=== PATIENT | female | born 1955 | race Caucasian/White ===

== ENCOUNTER 2017-05-07 16:07 | Emergency (ER) | payer MEDICAID ==
[~2017-05-07] VITALS: Ht 157.5 cm; Wt 59.0 kg
[2017-05-07 17:13] LABS: BASOPHILS % (AUTO) 0.7 % (0-1); EOSINOPHILS # (AUTO) 0.1 X10'3 (0-0.9); HEMATOCRIT 39.2 % (35.0-45.0); HEMOGLOBIN 13.2 g/dl (12.0-16.0); LYMPHOCYTES # (AUTO) 0.7 X10'3 (1.1-4.8); LYMPHOCYTES % (AUTO) 11.3 % (21-51); MEAN CORPUSCULAR HGB CONC 33.7 % (33.0-36.5); MEAN CORPUSCULAR VOLUME 94.9 FL (78-98); MONOCYTES # (AUTO) 0.6 X10'3 (0-0.9); MONOCYTES % (AUTO) 9.2 % (2-12); NEUTROPHILS % (AUTO) 77.8 % (42-75); PLATELET COUNT 267 X10'3 (140-440); RED BLOOD COUNT 4.13 X10'6 (4.20-5.60); WHITE BLOOD COUNT 6.4 X10'3 (4.5-11.0)
[2017-05-07 17:24] LABS: PARTIAL THROMBOPLASTIN TIME 24 SECONDS (22-32)
[2017-05-07 17:31] LABS: ALANINE AMINOTRANSFERASE 27 U/L (12-78); ALKALINE PHOSPHATASE 70 IU/L (46-116); ANION GAP 10 (8-16); ASPARTATE AMINO TRANSFERASE 22 U/L (10-37); BILIRUBIN,TOTAL 0.3 MG/DL (0.1-1.0); BLOOD UREA NITROGEN 15 MG/DL (7-18); CALCIUM 9.1 MG/DL (8.5-10.1); CHLORIDE 102 MMOL/L (99-107); GLUCOSE 110 MG/DL (70-104); POTASSIUM 3.7 MMOL/L (3.5-5.1); SODIUM 139 MMOL/L (135-145); TOTAL CARBON DIOXIDE 26.8 MMOL/L (24-32); eGFR > 90 ML/MIN
[2017-05-07] MEDS ORDERED: normal saline 1000ML IV soln IVB ONE (18:35)
[2017-05-07] MEDS ORDERED: ondansetron/PF 4mg/2ml inj IV ONE (18:35)
[2017-05-07] MEDS ORDERED: meclizine 12.5mg tablet PO ONE (18:35)
[2017-05-07] MEDS ORDERED: ONDA4TAB9 SL (19:44)
[2017-05-07] MEDS ORDERED: MECL-111 PO (19:44)
[2017-05-07 20:12] VITALS: BP 184/101
== END 2017-05-07 21:10 | disposition home or self-care (01) ==
LOC: ER 16:07
DX: R42 Dizziness and giddiness (principal); R55 Syncope and collapse; I10 Essential (primary) hypertension; Z88.8 Allergy status to other drugs, medicaments and biological substances
CPT/HCPCS: 36415; 71045; 80053; 84484; 85025; 85610; 85730; 93005; 96361; 96374; 99285; J2405; J7030; J8597

== ENCOUNTER 2017-05-15 12:44 | Emergency (ER) | payer MEDICAID ==
[~2017-05-15] VITALS: Ht 167.6 cm; Wt 61.2 kg
[~2017-05-15 12:44] MED LIST: MECL-111 PO
[2017-05-15 14:31] LABS: BASOPHILS % (AUTO) 0.3 % (0-1); EOSINOPHILS # (AUTO) 0.1 X10'3 (0-0.9); EOSINOPHILS % (AUTO) 1.2 % (0-6); HEMATOCRIT 36.9 % (35.0-45.0); HEMOGLOBIN 12.4 g/dl (12.0-16.0); LYMPHOCYTES # (AUTO) 0.7 X10'3 (1.1-4.8); LYMPHOCYTES % (AUTO) 14.5 % (21-51); MEAN CORPUSCULAR HEMOGLOBIN 31.9 PG (27.0-31.0); MEAN CORPUSCULAR HGB CONC 33.6 % (33.0-36.5); MEAN PLATELET VOLUME 7.4 FL (7.4-10.4); MONOCYTES # (AUTO) 0.4 X10'3 (0-0.9); MONOCYTES % (AUTO) 8.5 % (2-12); NEUTROPHILS # (AUTO) 3.5 X10'3 (1.8-7.7); NEUTROPHILS % (AUTO) 75.5 % (42-75); PLATELET COUNT 223 X10'3 (140-440); RED BLOOD COUNT 3.88 X10'6 (4.20-5.60); RED CELL DISTRIBUTION WIDTH 14.1 % (11.5-14.5); WHITE BLOOD COUNT 4.7 X10'3 (4.5-11.0)
[2017-05-15 14:58] LABS: ALANINE AMINOTRANSFERASE 19 U/L (12-78); ALBUMIN 3.6 G/DL (3.4-5.0); ALKALINE PHOSPHATASE 68 IU/L (46-116); ANION GAP 6 (8-16); ASPARTATE AMINO TRANSFERASE 24 U/L (10-37); BILIRUBIN,TOTAL 0.2 MG/DL (0.1-1.0); BLOOD UREA NITROGEN 17 MG/DL (7-18); BUN/CREATININE RATIO 28.3 (6.6-38.0); CALCIUM 8.7 MG/DL (8.5-10.1); CHLORIDE 107 MMOL/L (99-107); GLUCOSE 159 MG/DL (70-104); POTASSIUM 3.7 MMOL/L (3.5-5.1); SODIUM 142 MMOL/L (135-145); TOTAL CARBON DIOXIDE 28.7 MMOL/L (24-32); TOTAL PROTEIN 7.3 G/DL (6.4-8.2); TROPONIN I < 0.04 NG/ML (0.0-0.05); eGFR > 90 ML/MIN
[2017-05-15 15:38] VITALS: BP 138/85
== END 2017-05-15 15:48 | disposition home or self-care (01) ==
LOC: ER 12:44
DX: I10 Essential (primary) hypertension (principal); R42 Dizziness and giddiness; R73.9 Hyperglycemia, unspecified; Z88.8 Allergy status to other drugs, medicaments and biological substances; Z60.2 Problems related to living alone; Z79.899 Other long term (current) drug therapy
CPT/HCPCS: 36415; 70450; 80053; 84443; 84484; 85025; 93005; 99285

== ENCOUNTER 2020-11-28 09:28 | Emergency (ER) | payer MEDICARE, MEDICAID ==
[~2020-11-28] VITALS: Ht 167.6 cm; Wt 63.6 kg
[~2020-11-28 09:28] MED LIST changes: +FOLI0.8T3 PO; +HYDR25TA4 PO; +LOPE-144 PO; -MECL-111 PO; +METH2.5T PO; +PANT40TA54 PO; +PRE5T PO
[2020-11-28 11:03] LABS: BASOPHILS % (AUTO) 0.6 % (0-1); EOSINOPHILS # (AUTO) 0.1 X10'3 (0-0.9); EOSINOPHILS % (AUTO) 1.7 % (0-6); HEMATOCRIT 27.6 % (35.0-45.0); HEMOGLOBIN 8.8 g/dl (12.0-16.0); LYMPHOCYTES # (AUTO) 0.7 X10'3 (1.1-4.8); LYMPHOCYTES % (AUTO) 10.6 % (21-51); MEAN CORPUSCULAR HEMOGLOBIN 28.9 PG (27.0-31.0); MEAN CORPUSCULAR VOLUME 90.4 FL (78-98); MEAN PLATELET VOLUME 6.5 FL (7.4-10.4); MONOCYTES # (AUTO) 0.5 X10'3 (0-0.9); NEUTROPHILS # (AUTO) 5.4 X10'3 (1.8-7.7); NEUTROPHILS % (AUTO) 79.1 % (42-75); PLATELET COUNT 470 X10'3 (140-440); RED BLOOD COUNT 3.05 X10'6 (4.20-5.60); RED CELL DISTRIBUTION WIDTH 16.9 % (11.5-14.5); WHITE BLOOD COUNT 6.8 X10'3 (4.5-11.0)
[2020-11-28 11:27] LABS: ALANINE AMINOTRANSFERASE 26 U/L (12-78); ALBUMIN 3.8 G/DL (3.4-5.0); ALKALINE PHOSPHATASE 76 IU/L (46-116); ANION GAP 9 (8-16); ASPARTATE AMINO TRANSFERASE 17 U/L (10-37); BILIRUBIN,TOTAL 0.2 MG/DL (0.1-1.0); BLOOD UREA NITROGEN 28 MG/DL (7-18); BUN/CREATININE RATIO 27.2 (6.6-38.0); CALCIUM 8.5 MG/DL (8.5-10.1); CHLORIDE 106 MMOL/L (99-107); CREATININE 1.03 MG/DL (0.40-0.90); GLUCOSE 131 MG/DL (70-104); POTASSIUM 3.5 MMOL/L (3.5-5.1); SODIUM 143 MMOL/L (135-145); TOTAL CARBON DIOXIDE 28.5 MMOL/L (24-32); TOTAL PROTEIN 7.5 G/DL (6.4-8.2); eGFR 53 ML/MIN
[2020-11-28 12:13] LABS: D-DIMER 2.34 MG/L FEU (0-0.50)
[2020-11-28] MEDS ORDERED: normal saline 1000ml 1,000 ML IV ONE (12:25)
[2020-11-28] MEDS ORDERED: iohexol 350MG/ML 100ml bottle IV ONE (13:17)
[2020-11-28 15:35] VITALS: BP 158/89
== END 2020-11-28 15:34 | disposition home or self-care (01) ==
LOC: ER 09:29
DX: R00.0 Tachycardia, unspecified (principal); R53.1 Weakness; I10 Essential (primary) hypertension; Z72.89 Other problems related to lifestyle; Z86.718 Personal history of other venous thrombosis and embolism; Z88.8 Allergy status to other drugs, medicaments and biological substances; Z79.899 Other long term (current) drug therapy
CPT/HCPCS: 36415; 71045; 71275; 80053; 83880; 84443; 84484; 85025; 85379; 93005; 96360; 99285; J7030; Q9967

== ENCOUNTER 2021-08-16 06:07 | Emergency (ER) | payer MEDICARE, MEDICAID ==
[~2021-08-16] VITALS: Ht 167.6 cm; Wt 61.8 kg
[2021-08-16 08:29] LABS: BASOPHILS % (AUTO) 0.2 % (0-1); EOSINOPHILS % (AUTO) 0.1 % (0-6); HEMATOCRIT 37.3 % (35.0-45.0); HEMOGLOBIN 12.4 g/dl (12.0-16.0); LYMPHOCYTES # (AUTO) 0.3 X10'3 (1.1-4.8); LYMPHOCYTES % (AUTO) 5.4 % (21-51); MEAN CORPUSCULAR HEMOGLOBIN 32.9 PG (27.0-31.0); MEAN CORPUSCULAR HGB CONC 33.2 g/dL (33.0-36.5); MEAN PLATELET VOLUME 6.8 FL (7.4-10.4); MONOCYTES # (AUTO) 0.4 X10'3 (0-0.9); MONOCYTES % (AUTO) 6.9 % (2-12); NEUTROPHILS # (AUTO) 5.3 X10'3 (1.8-7.7); NEUTROPHILS % (AUTO) 87.4 % (42-75); PLATELET COUNT 241 X10'3 (140-440); RED BLOOD COUNT 3.77 X10'6 (4.20-5.60); RED CELL DISTRIBUTION WIDTH 15.1 % (11.5-14.5)
[2021-08-16 08:49] LABS: CLARITY,URINE SLIGHTLY CLOUDY (Clear); COLOR,URINE YELLOW (Yellow); GLUCOSE, URINE NEGATIVE (Neg); KETONES,URINE 40 mg/dl (Neg); LEUKOCYTE ESTERASE ,URINE NEGATIVE (Neg); NITRITES, URINE NEGATIVE (Neg); OCCULT BLOOD,URINE TRACE-INTACT (Neg); PROTEIN,URINE 30 mg/dl (Neg); UROBILINOGEN,URINE 0.2 E.U/dL (0.2-1.0)
[2021-08-16 08:50] LABS: UA COLLECTION TYPE CLN CATCH MIDSTREAM
[2021-08-16 08:55] LABS: BACTERIA,URINE FEW /HPF (Neg); FINE GRANULAR CAST 0-3 /LPF (NEGATIVE); HYALINE CASTS 0-3 /LPF (NEGATIVE); MUCUS STRANDS MODERATE /LPF (Neg); RBC,URINE 0-2 /HPF (0-2); SQUAMOUS EPITHELIAL CELL,UR FEW /LPF (FEW); WBC,URINE 0-4 /HPF (0-4)
[2021-08-16 08:55] LABS: ALANINE AMINOTRANSFERASE 42 U/L (12-78); ALBUMIN 3.7 G/DL (3.4-5.0); ALBUMIN/GLOBULIN RATIO 0.9 (1.1-1.5); ALKALINE PHOSPHATASE 69 IU/L (46-116); ANION GAP 8 (8-16); ASPARTATE AMINO TRANSFERASE 36 U/L (10-37); BILIRUBIN,TOTAL 0.5 MG/DL (0.1-1.0); BLOOD UREA NITROGEN 16 MG/DL (7-18); BUN/CREATININE RATIO 17.2 (6.6-38.0); CALCIUM 9.1 MG/DL (8.5-10.1); CHLORIDE 101 MMOL/L (99-107); CREATININE 0.93 MG/DL (0.40-0.90); GLUCOSE 99 MG/DL (70-104); MAGNESIUM 2.1 MG/DL (1.5-2.4); POTASSIUM 3.8 MMOL/L (3.5-5.1); SODIUM 136 MMOL/L (135-145); TOTAL CARBON DIOXIDE 27.2 MMOL/L (24-32); TOTAL PROTEIN 7.8 G/DL (6.4-8.2); eGFR 60 ML/MIN
[2021-08-16 09:22] VITALS: BP 133/78
== END 2021-08-16 10:12 | disposition home or self-care (01) ==
LOC: ER 06:08
DX: B34.9 Viral infection, unspecified (principal); Z20.822 Contact with and (suspected) exposure to COVID-19; R53.1 Weakness; R51.9 Headache, unspecified; R11.0 Nausea; I10 Essential (primary) hypertension; M19.90 Unspecified osteoarthritis, unspecified site; F41.9 Anxiety disorder, unspecified; Z86.718 Personal history of other venous thrombosis and embolism; Z72.89 Other problems related to lifestyle; Z60.2 Problems related to living alone; Z88.8 Allergy status to other drugs, medicaments and biological substances; Z79.899 Other long term (current) drug therapy
CPT/HCPCS: 36415; 71045; 80053; 81001; 83735; 84145; 84484; 85025; 87502; 87503; 87635; 99284; C9803

== ENCOUNTER 2021-08-25 06:21 | Inpatient (IN) | payer MEDICARE, MEDICAID ==
[~2021-08-25] VITALS: Ht 167.6 cm; Wt 54.0 kg
[2021-08-25 07:32] LABS: BASOPHILS % (AUTO) 0.4 % (0-1); EOSINOPHILS % (AUTO) 0.4 % (0-6); HEMATOCRIT 38.1 % (35.0-45.0); HEMOGLOBIN 12.9 g/dl (12.0-16.0); LYMPHOCYTES # (AUTO) 0.5 X10'3 (1.1-4.8); LYMPHOCYTES % (AUTO) 4.7 % (21-51); MEAN CORPUSCULAR HEMOGLOBIN 32.9 PG (27.0-31.0); MEAN CORPUSCULAR HGB CONC 33.8 g/dL (33.0-36.5); MEAN CORPUSCULAR VOLUME 97.3 FL (78-98); MEAN PLATELET VOLUME 7.7 FL (7.4-10.4); MONOCYTES # (AUTO) 1.3 X10'3 (0-0.9); NEUTROPHILS % (AUTO) 82.5 % (42-75); PLATELET COUNT 411 X10'3 (140-440); RED BLOOD COUNT 3.92 X10'6 (4.20-5.60); RED CELL DISTRIBUTION WIDTH 15.1 % (11.5-14.5); WHITE BLOOD COUNT 10.9 X10'3 (4.5-11.0)
[2021-08-25 07:37] LABS: ALANINE AMINOTRANSFERASE 147 U/L (12-78); ALBUMIN 2.6 G/DL (3.4-5.0); ALBUMIN/GLOBULIN RATIO 0.5 (1.1-1.5); ALKALINE PHOSPHATASE 221 IU/L (46-116); ANION GAP 10 (8-16); ASPARTATE AMINO TRANSFERASE 99 U/L (10-37); BILIRUBIN,TOTAL 0.8 MG/DL (0.1-1.0); BLOOD UREA NITROGEN 31 MG/DL (7-18); BUN/CREATININE RATIO 25.6 (6.6-38.0); CHLORIDE 96 MMOL/L (99-107); CREATININE 1.21 MG/DL (0.40-0.90); GLUCOSE 153 MG/DL (70-104); LIPASE 207 U/L (73-393); SODIUM 136 MMOL/L (135-145); TOTAL CARBON DIOXIDE 30.5 MMOL/L (24-32); TOTAL PROTEIN 8.1 G/DL (6.4-8.2); eGFR 44 ML/MIN
[2021-08-25 07:53] LABS: CALCIUM 8.8 MG/DL (8.5-10.1)
[2021-08-25 07:56] LABS: POTASSIUM 2.7 MMOL/L (3.5-5.1)
[2021-08-25] MEDS ORDERED: normal saline 1000ml 1,000 ML IV ONE (09:30)
[2021-08-25] MEDS ORDERED: potassium CL 10mEq/100ml bag 100 ML IV ONE (09:30)
[2021-08-25 09:54] LABS: APTT 25 SECONDS (22-32); MAGNESIUM 2.3 MG/DL (1.5-2.4); PHOSPHORUS 2.8 MG/DL (2.3-4.5)
[2021-08-25 09:58] LABS: OCCULT BLOOD STOOL POSITIVE (Neg)
[2021-08-25] MEDS: potassium Cl 20 mEq SR tablet PO ONE ×2 (10:03→10:08)
[2021-08-25] MEDS: magnesium 2GM in 50ml NS 50 ML IV SCH ×2 (10:03→11:31)
[2021-08-25] MEDS ORDERED: POTASSIUM BICARB 20meq eff tab 20 MEQ TABLET.EFF PO ONE (10:10)
[2021-08-25] MEDS ORDERED: POTA10CA44 PO (10:23)
[2021-08-25] MEDS ORDERED: FOLI1TAB27 PO (10:23)
--- NOTE | 2021-08-25 10:24 | NUR ---
COMPLETED MED REC WITH PT AND PHARMACY EXTERNAL LIST.
[2021-08-25] MEDS ORDERED: ondansetron/PF 4mg/2ml inj IV PRN (11:50)
[2021-08-25] MEDS ORDERED: acetaminophen 325mg tablet PO PRN ×2 (11:50)
[2021-08-25] MEDS ORDERED: magnesium Cl slow-release 64mg tablet PO PRN (11:50)
[2021-08-25] MEDS ORDERED: mag hydrox/Alum hydrox/simeth 30ml oral suspension PO PRN (11:50)
[2021-08-25] MEDS ORDERED: magnesium 2GM in 50ml NS 50 ML IV PRN (11:50)
[2021-08-25] MEDS ORDERED: loperamide 2mg capsule PO PRN (11:50)
[2021-08-25] MEDS ORDERED: magnesium hydroxide 30ml (MOM) UD suspension PO PRN (11:50)
[2021-08-25] MEDS ORDERED: morphine 2 MG/ML inj. syringe IV PRN (11:50)
[2021-08-25] MEDS ORDERED: POTASSIUM BICARB 20meq eff tab 20 MEQ TABLET.EFF PO PRN (11:50)
[2021-08-25] MEDS ORDERED: magnesium 4gm in 100ml NS 100 ML IV PRN (11:50)
[2021-08-25] MEDS ORDERED: potassium CL 10mEq/100ml bag 100 ML IV PRN (11:50)
[2021-08-25] MEDS: normal saline 1000ml 1,000 ML IV SCH ×2 (12:32→17:17)
[2021-08-25] MEDS ORDERED: FOLI0.4T6 PO (15:38)
--- NOTE | 2021-08-25 16:44 | NUR ---
Patient in room ED 15. I have received report from CARL Odonnell from the ER and had the opportunity to ask questions and assume patient care.
[2021-08-25 17:37] VITALS: BP 128/75
[2021-08-25 18:00] VITALS: BP 138/69
--- NOTE | 2021-08-25 18:19 | NUR ---
Problems reprioritized. Patient report given, questions answered & plan of care reviewed with CARL Das.
[2021-08-25] MEDS: K and/or MAG REPLACEMENT MC SCH (20:00)
[2021-08-25] MEDS: heparin, porcine 5000 units/ml vial SQ SCH (20:55)
[2021-08-25] MEDS ORDERED: temazepam 15mg capsule PO PRN (21:00)
[2021-08-25 21:57] VITALS: BP 152/74
[2021-08-26 02:00] VITALS: BP 125/62
[2021-08-26 06:00] VITALS: BP 129/63
--- NOTE | 2021-08-26 06:30 | NUR ---
Patient in room PCU 3015. I have received report from CARL Das and had the opportunity to ask questions and assume patient care.
[2021-08-26 07:03] LABS: BASOPHILS % (AUTO) 0.3 % (0-1); EOSINOPHILS # (AUTO) 0.1 X10'3 (0-0.9); EOSINOPHILS % (AUTO) 1.9 % (0-6); HEMATOCRIT 32.4 % (35.0-45.0); HEMOGLOBIN 10.7 g/dl (12.0-16.0); LYMPHOCYTES # (AUTO) 0.7 X10'3 (1.1-4.8); LYMPHOCYTES % (AUTO) 9.2 % (21-51); MEAN CORPUSCULAR HGB CONC 33.2 g/dL (33.0-36.5); MEAN CORPUSCULAR VOLUME 99.3 FL (78-98); MONOCYTES # (AUTO) 0.8 X10'3 (0-0.9); MONOCYTES % (AUTO) 10.7 % (2-12); NEUTROPHILS # (AUTO) 5.7 X10'3 (1.8-7.7); NEUTROPHILS % (AUTO) 77.9 % (42-75); PLATELET COUNT 336 X10'3 (140-440); RED BLOOD COUNT 3.26 X10'6 (4.20-5.60); RED CELL DISTRIBUTION WIDTH 15.1 % (11.5-14.5); WHITE BLOOD COUNT 7.3 X10'3 (4.5-11.0)
[2021-08-26 07:39] LABS: ALANINE AMINOTRANSFERASE 102 U/L (12-78); ALBUMIN/GLOBULIN RATIO 0.5 (1.1-1.5); ALKALINE PHOSPHATASE 156 IU/L (46-116); ANION GAP 9 (8-16); ASPARTATE AMINO TRANSFERASE 75 U/L (10-37); BILIRUBIN,TOTAL 0.4 MG/DL (0.1-1.0); BLOOD UREA NITROGEN 20 MG/DL (7-18); CALCIUM 7.8 MG/DL (8.5-10.1); CHLORIDE 106 MMOL/L (99-107); CREATININE 0.77 MG/DL (0.40-0.90); GLUCOSE 94 MG/DL (70-104); POTASSIUM 3.1 MMOL/L (3.5-5.1); SODIUM 142 MMOL/L (135-145); TOTAL PROTEIN 6.3 G/DL (6.4-8.2); eGFR 75 ML/MIN
[2021-08-26] MEDS: heparin, porcine 5000 units/ml vial SQ SCH ×2 (07:42→19:50)
[2021-08-26] MEDS: normal saline 1000ml 1,000 ML IV SCH ×3 (07:50→23:32)
[2021-08-26] MEDS: K and/or MAG REPLACEMENT MC SCH ×2 (08:00→20:00)
[2021-08-26] MEDS: CefTRIAXone 2gm/NS 100ml IVPB 100 ML IV SCH (08:54)
[2021-08-26] MEDS: POTASSIUM BICARB 20meq eff tab 20 MEQ TABLET.EFF PO PRN ×3 (10:20→17:45)
[2021-08-26 11:00] VITALS: BP 153/71
[2021-08-26] MEDS ORDERED: codeine/proMETHazine 5ml UD syrup PO PRN (11:35)
[2021-08-26 15:00] VITALS: BP 123/57
--- NOTE | 2021-08-26 17:17 | NUR ---
Malnutrition Consult: Pt admit DX R lower lobe PNA, CKD 3, diarrhea, failure to thrive, and hypokalemia secondary to diarrhea and HCTZ use at home per EMR. Pt reports decreased appetite and wt loss per RN Malnutrition Screen. Pt seen by RD at bedside; pt reports significant weakness/fatigue as well as unable to tolerate solid PO past 11 days [facility]. Pt reports did buy Boost to drink at home though overall intake remained very poor only able to tolerate liquids. Per pt, UBW 135 pounds though unsure most recent wt and no scaled wt this admit/wt hx. PO 25-50% initial two regular diet meals today per EMR partially meeting needs. Pt reports dislikes eggs, sausage, and hot cereals requests orange juice WB; dietary notified. Upon physical assessment pt has visible severe muscle/fat wasting evident to biceps/triceps and mild muscle/fat wasting evident to temporal/buccal regions. Given visible muscle/fat wasting and predicted suboptimal protein/energy intake pt meets minimum severe malnutrition criteria; MD notified. RD provided verbal high protein ed to pt who is agreeable to chocolate Ensure Enlive TIDWM; MD notified. RD encouraged pt to request for dietitian if nutrition questions/concerns this admit. LBM 08/25 w/ no GI symptoms noted at this time per EMR. Pt receiving electrolyte replacement per protocol. Will continue to monitor for further nutrition intervention needs this admit. Rec: 1. continue regular diet; honor pt food preferences; encourage PO 2. chocolate Ensure Enlive TIDWM; pending MD verification in EMR 3. bowel care per rx; hx diarrhea [facility] 4. scaled wt this admit; subsequent weekly wts Addendum: 08/26/21 at [address] Amended: Links added.
[2021-08-26 18:00] VITALS: BP 146/67
[2021-08-26] MEDS ORDERED: lactose-reduced food (Ensure Enlive) - 237ml bottle PO SCH (18:00)
--- NOTE | 2021-08-26 18:33 | NUR ---
Problems reprioritized. Patient report given, questions answered & plan of care reviewed with CARL Cool.
--- NOTE | 2021-08-26 18:57 | NUR ---
Patient in room PCU 3015. I have received report from ADALID Cool and had the opportunity to ask questions and assume patient care.
[2021-08-26] MEDS: HYDROcodone/acetaminophen 5mg/325mg tablet PO PRN (19:51)
[2021-08-26] MEDS ORDERED: guaiFENesin 200 MG/10 ML oral syrup UD cup PO PRN (21:45)
[2021-08-26 22:00] VITALS: BP 128/61
[2021-08-26] MEDS: benzonatate 100mg capsule PO PRN (22:09)
[2021-08-27 02:00] VITALS: BP 170/84
[2021-08-27] MEDS: benzonatate 100mg capsule PO PRN (04:15)
[2021-08-27] MEDS: HYDROcodone/acetaminophen 5mg/325mg tablet PO PRN (04:15)
[2021-08-27 06:00] VITALS: BP_SYST 136; BP_SYST 148; BP_DIAS 69; BP_DIAS 78
--- NOTE | 2021-08-27 06:24 | NUR ---
Patient in room PCU 3015. I have received report from CARL Cool and had the opportunity to ask questions and assume patient care.
--- NOTE | 2021-08-27 06:25 | NUR ---
Problems reprioritized. Patient report given, questions answered & plan of care reviewed with CARL Melara.
[2021-08-27 07:08] LABS: BASOPHILS % (AUTO) 0.3 % (0-1); EOSINOPHILS # (AUTO) 0.1 X10'3 (0-0.9); EOSINOPHILS % (AUTO) 2.1 % (0-6); HEMATOCRIT 30.5 % (35.0-45.0); HEMOGLOBIN 10.2 g/dl (12.0-16.0); LYMPHOCYTES # (AUTO) 0.6 X10'3 (1.1-4.8); LYMPHOCYTES % (AUTO) 9.4 % (21-51); MEAN CORPUSCULAR HEMOGLOBIN 33.3 PG (27.0-31.0); MEAN CORPUSCULAR HGB CONC 33.5 g/dL (33.0-36.5); MEAN CORPUSCULAR VOLUME 99.4 FL (78-98); MEAN PLATELET VOLUME 7.8 FL (7.4-10.4); MONOCYTES # (AUTO) 0.6 X10'3 (0-0.9); MONOCYTES % (AUTO) 9.8 % (2-12); NEUTROPHILS # (AUTO) 5.1 X10'3 (1.8-7.7); NEUTROPHILS % (AUTO) 78.4 % (42-75); PLATELET COUNT 356 X10'3 (140-440); RED BLOOD COUNT 3.07 X10'6 (4.20-5.60); RED CELL DISTRIBUTION WIDTH 15.5 % (11.5-14.5); WHITE BLOOD COUNT 6.5 X10'3 (4.5-11.0)
[2021-08-27 07:17] LABS: ALANINE AMINOTRANSFERASE 75 U/L (12-78); ALBUMIN 1.4 G/DL (3.4-5.0); ALBUMIN/GLOBULIN RATIO 0.3 (1.1-1.5); ALKALINE PHOSPHATASE 131 IU/L (46-116); ANION GAP 7 (8-16); ASPARTATE AMINO TRANSFERASE 38 U/L (10-37); BILIRUBIN,TOTAL 0.4 MG/DL (0.1-1.0); BLOOD UREA NITROGEN 10 MG/DL (7-18); BUN/CREATININE RATIO 16.1 (6.6-38.0); CALCIUM 7.7 MG/DL (8.5-10.1); CHLORIDE 107 MMOL/L (99-107); CREATININE 0.62 MG/DL (0.40-0.90); GLUCOSE 90 MG/DL (70-104); POTASSIUM 3.2 MMOL/L (3.5-5.1); SODIUM 141 MMOL/L (135-145); TOTAL CARBON DIOXIDE 27.4 MMOL/L (24-32); TOTAL PROTEIN 5.9 G/DL (6.4-8.2); eGFR > 90 ML/MIN
[2021-08-27] MEDS: K and/or MAG REPLACEMENT MC SCH (08:00)
[2021-08-27] MEDS: normal saline 1000ml 1,000 ML IV SCH (08:28)
[2021-08-27] MEDS: heparin, porcine 5000 units/ml vial SQ SCH (08:28)
[2021-08-27] MEDS: CefTRIAXone 2gm/NS 100ml IVPB 100 ML IV SCH (08:28)
[2021-08-27] MEDS ORDERED: LEVO500T90 PO (08:37)
[2021-08-27] MEDS ORDERED: LOPE2CAP PO (08:37)
[2021-08-27] MEDS ORDERED: POTA10CA44 PO (08:37)
[2021-08-27] MEDS ORDERED: GUAI100L97 PO (08:37)
[2021-08-27] MEDS: POTASSIUM BICARB 20meq eff tab 20 MEQ TABLET.EFF PO PRN (08:40)
[2021-08-27] MEDS ORDERED: AMLO5TAB16 PO (10:49)
[2021-08-27 11:00] VITALS: BP 144/78
--- NOTE | 2021-08-27 14:39 | NUR ---
Pt discharged to home at 1326, with all belongings, in private vehicle. Discharge instructions and medications reviewed. New prescriptions sent to [facility]. Pt instructed to follow up with PCP in 1-2 weeks, and to seek medical attention should symptoms return. Pt states understanding and willingness to comply with all discharge instructions. IV DCd', cannula intact. Pt escorted to front lobby via wheelchair by hospital staff.
== END 2021-08-27 13:47 | disposition home or self-care (01) | DRG 193 ==
LOC: ER 06:22 → ED HOLD 11:54 → PCU 3S 16:53
PROVIDERS: ADMIT Internal Medicine; ATTEND Internal Medicine
DX: J18.9 Pneumonia, unspecified organism (principal); N17.0 Acute kidney failure with tubular necrosis; R64 Cachexia; Z68.1 Body mass index [BMI] 19.9 or less, adult; Z20.822 Contact with and (suspected) exposure to COVID-19; I12.9 Hypertensive chronic kidney disease with stage 1 through stage 4 chronic kidney disease, or unspecified chronic kidney disease; N18.30 Chronic kidney disease, stage 3 unspecified; M06.9 Rheumatoid arthritis, unspecified; T50.2X5A Adverse effect of carbonic-anhydrase inhibitors, benzothiadiazides and other diuretics, initial encounter; Z60.2 Problems related to living alone; E87.6 Hypokalemia; M19.90 Unspecified osteoarthritis, unspecified site; R62.7 Adult failure to thrive; F41.9 Anxiety disorder, unspecified; R19.7 Diarrhea, unspecified; R79.89 Other specified abnormal findings of blood chemistry; Z86.718 Personal history of other venous thrombosis and embolism; Z88.8 Allergy status to other drugs, medicaments and biological substances; Y92.89 Other specified places as the place of occurrence of the external cause
CPT/HCPCS: 36415; 71045; 80053; 82272; 83605; 83690; 83735; 84100; 85025; 85610; 85730; 86885; 86900; 86901; 87040; 87081; 87502; 87503; 87635; 97161; 97530; 99285; C9803; G0378; J0696; J1644; J3475; J3480; J7030

== ENCOUNTER 2022-02-13 09:23 | Emergency (ER) | payer MEDICARE, MEDICAID ==
[~2022-02-13] VITALS: Ht 167.6 cm; Wt 61.4 kg
[~2022-02-13 09:23] MED LIST changes: +AMLO5TAB16 PO; +FOLI0.4T6 PO; -FOLI0.8T3 PO; +GUAI100L97 PO; -HYDR25TA4 PO; -LOPE-144 PO; +LOPE2CAP PO; -METH2.5T PO; -PANT40TA54 PO; +POTA10CA44 PO
[2022-02-13 10:21] LABS: BASOPHILS # (AUTO) 0.1 X10'3 (0-0.2); BASOPHILS % (AUTO) 0.8 % (0-1); EOSINOPHILS % (AUTO) 0.3 % (0-6); HEMATOCRIT 34.8 % (35.0-45.0); LYMPHOCYTES # (AUTO) 0.4 X10'3 (1.1-4.8); MEAN CORPUSCULAR HEMOGLOBIN 33.1 PG (27.0-31.0); MEAN CORPUSCULAR HGB CONC 34.4 g/dL (33.0-36.5); MEAN CORPUSCULAR VOLUME 96.1 FL (78-98); MONOCYTES # (AUTO) 0.6 X10'3 (0-0.9); NEUTROPHILS # (AUTO) 6.2 X10'3 (1.8-7.7); NEUTROPHILS % (AUTO) 85.9 % (42-75); PLATELET COUNT 247 X10'3 (140-440); RED BLOOD COUNT 3.62 X10'6 (4.20-5.60); RED CELL DISTRIBUTION WIDTH 15.4 % (11.5-14.5); WHITE BLOOD COUNT 7.2 X10'3 (4.5-11.0)
[2022-02-13] MEDS ORDERED: normal saline 1000ml 1,000 ML IV ONE (10:35)
[2022-02-13 10:36] LABS: ALANINE AMINOTRANSFERASE 23 U/L (12-78); ALBUMIN 3.9 G/DL (3.4-5.0); ALBUMIN/GLOBULIN RATIO 1.1 (1.1-1.5); ALKALINE PHOSPHATASE 76 IU/L (46-116); ANION GAP 11 (8-16); ASPARTATE AMINO TRANSFERASE 21 U/L (10-37); BILIRUBIN,TOTAL 0.5 MG/DL (0.1-1.0); BLOOD UREA NITROGEN 19 MG/DL (7-18); CALCIUM 8.9 MG/DL (8.5-10.1); CHLORIDE 102 MMOL/L (99-107); CREATININE 0.76 MG/DL (0.40-0.90); GLUCOSE 116 MG/DL (70-104); POTASSIUM 3.8 MMOL/L (3.5-5.1); SODIUM 138 MMOL/L (135-145); TOTAL CARBON DIOXIDE 25.4 MMOL/L (24-32); TOTAL PROTEIN 7.5 G/DL (6.4-8.2); eGFR 76 ML/MIN
[2022-02-13] MEDS ORDERED: azithromycin 250mg tablet PO ONE (10:50)
[2022-02-13 10:56] VITALS: BP 109/60
[2022-02-13] MEDS ORDERED: AZIT250T2 PO (11:06)
[2022-02-13] MEDS ORDERED: ONDA4TAB12 PO (11:06)
[2022-02-13 11:43] LABS: CLARITY,URINE CLEAR (Clear); COLOR,URINE YELLOW (Yellow); GLUCOSE, URINE NEGATIVE (Neg); KETONES,URINE TRACE mg/dl (Neg); LEUKOCYTE ESTERASE ,URINE NEGATIVE (Neg); NITRITES, URINE NEGATIVE (Neg); OCCULT BLOOD,URINE NEGATIVE (Neg); PROTEIN,URINE NEGATIVE (Neg); UROBILINOGEN,URINE 0.2 E.U/dL (0.2-1.0)
[2022-02-13 11:49] LABS: UA COLLECTION TYPE CLN CATCH MIDSTREAM
== END 2022-02-13 11:41 | disposition home or self-care (01) ==
LOC: ER 09:24
DX: R50.9 Fever, unspecified (principal); R11.2 Nausea with vomiting, unspecified; I10 Essential (primary) hypertension; Z88.8 Allergy status to other drugs, medicaments and biological substances
CPT/HCPCS: 36415; 71046; 80053; 81003; 85025; 96360; 99284; J7030

== ENCOUNTER 2022-02-15 06:59 | Emergency (ER) | payer MEDICARE, MEDICAID ==
[~2022-02-15] VITALS: Ht 167.6 cm; Wt 61.0 kg
[2022-02-15 06:59] VITALS: BP 154/87
[~2022-02-15 06:59] MED LIST changes: +AZIT250T2 PO; +ONDA4TAB12 PO
[2022-02-15 08:05] LABS: MONOTEST NEGATIVE (Neg)
[2022-02-15] MEDS ORDERED: BEBTELOVIMAB 175 MG/2 ML VIAL IV ONE (09:15)
[2022-02-15] MEDS ORDERED: DEXA6TAB6 PO (11:57)
== END 2022-02-15 12:01 | disposition home or self-care (01) ==
LOC: ER 06:59
DX: U07.1 COVID-19 (principal); R50.9 Fever, unspecified; I10 Essential (primary) hypertension; M19.90 Unspecified osteoarthritis, unspecified site; Z88.8 Allergy status to other drugs, medicaments and biological substances
CPT/HCPCS: 36415; 86308; 87081; 87502; 87503; 87635; 87880; 99283; C9803; M0222; Q0222

== ENCOUNTER 2024-11-02 10:29 | Outpatient (CLI) | payer MEDICARE, MEDICAID ==
[~2024-11-02 10:29] MED LIST changes: -AZIT250T2 PO; +DEXA6TAB6 PO; +ONDA-243 PO; -ONDA4TAB12 PO; -POTA10CA44 PO; +POTA10CA95 PO
--- NOTE | 2024-11-02 11:24 | RADIOLOGY REPORT ---
EXAM: CT CT ABDOMEN PELVIS HISTORY: ABNORMAL FINDINGS IN URINE 69-year-old female with weakness, malaise, anorexia, calcium oxa late urinary tract stones. COMPARISON: None TECHNIQUE: Helical CT images of the abdomen and pelvis were performed without contrast. Sagittal and coronal ref ormatted images were obtained. This CT exam was performed using one or more of the following dose red uction techniques: Automated exposure control, adjustment of the mA and/or kV according to patient si ze, or use of iterative reconstruction technique. Radiation Dose: CT Abdomen/Pelvis: CTDIvol 13.28 mGy, DLP 584.1 mGy*cm. FINDINGS: Urinary tract: No renal or ureteral calculi, hydronephrosis, or hydroureter bilaterally. There are l eft renal parapelvic and cortical cysts. No urinary bladder calculi. Miscellaneous: The heart is not enlarged. There is scarring in the bilateral lower lobes. There is mi ld elevation of the left hemidiaphragm. There is a central hepatic simple cyst. The noncontrast splee n, pancreas, gallbladder, and adrenal glands are unremarkable. No abdominal aortic aneurysm. No abn ormal bowel dilatation, free air, free fluid, or suspicious adenopathy. There are sigmoid colon diver ticula without evidence of acute diverticulitis. The uterus is surgically absent. The appendix is no t dilated and does not appear inflamed. There is moderate to severe right and mild to moderate left h ip osteoarthritis. There is mild acetabular protrusion bilaterally, greater on the right. There is t horacolumbar dextroscoliosis. There is advanced lumbar degenerative disc disease, most severe at L3-L 4. There is left presacral stimulator. IMPRESSION: 1. No urinary tract calculi or obstruction bilaterally. 2. Postoperative changes of hysterectomy and left presacral stimulator. 3. Sigmoid colon diverticulosis without evidence of acute diverticulitis. 4. No evidence of bowel obstruction, acute appendicitis, or other acute process in the abdomen or pel vis.
--- NOTE | 2024-11-02 11:39 | RADIOLOGY REPORT ---
Exam: US US NON VASCULAR Clinical History: SUBCUTANEOUS MASS R ARM Comparison: None Technique: Targeted sonographic evaluation of the soft tissues of the right forearm was obtained utilizing mojica scale and color Doppler imaging. Findings/Impression: 2 adjacent small lobulated fluid collections in the superficial subcutaneous soft-tissue measuring 2. 4 cm and 1.2 cm, respectively. Findings are indeterminate and could include infection, edema or post procedural seromas or tenosynovitis. Clinical correlation advised.
== END 2024-11-02 23:59 | disposition home or self-care (01) ==
LOC: RAD 10:29
PROVIDERS: ATTEND Family Medicine
DX: K57.30 Diverticulosis of large intestine without perforation or abscess without bleeding (principal); J98.4 Other disorders of lung; Q79.1 Other congenital malformations of diaphragm; M16.12 Unilateral primary osteoarthritis, left hip; R22.9 Localized swelling, mass and lump, unspecified; R82.90 Unspecified abnormal findings in urine; Z90.710 Acquired absence of both cervix and uterus; M41.85 Other forms of scoliosis, thoracolumbar region
CPT/HCPCS: 74176; 76882

== ENCOUNTER 2025-01-15 13:04 | Outpatient (CLI) | payer MEDICARE, MEDICAID ==
--- NOTE | 2025-01-15 14:58 | RADIOLOGY REPORT ---
EXAM: CT CT LUMBAR SPINE INDICATION: OTHER INTVRT DISC DEGEN, LUM RGN WITH DISCOG BACK PAIN ONLY TECHNIQUE: Axial images of the lumbar spine have been obtained along with coronal and sagittal reformatted images. CT scans at this facility use dose modulation, iterative reconstruction, and/or weight based dosing when appropriate to reduce radiation dose to as low as reasonably achievable. COMPARISON: None FINDINGS: ANATOMY: Five lumbar-type vertebral bodies are present. The most inferior well- formed disc space will be referred to as L5-S1 for purposes of numbering in this report. Gentle rotatory dextrocurvature centered at L3-4. VERTEBRAL BODIES: The vertebral bodies are normal in height and alignment. SPINAL CANAL: No spinal canal narrowing. INTERVERTEBRAL DISCS: No significant posterior osteophyte complex intervertebral disc height loss at L2-3, L3-4 with vacuum phenomenon. Slight asymmetric appearance of the intervertebral disc height loss secondary to slight dextrocurvature centered at L2-3. FACETS: Multilevel mild to moderate facet arthropathy. OTHER: Left-sided renal sinus cysts cortical exophytic cysts. Minimal sigmoid diverticulosis. Sacral stimulator lead. Electronic device is not visualized. Suspected prominent right-sided Tarlov cysts measuring 1.8 cm at T11-12 causing right-sided foraminal narrowing IMPRESSION: 1. No CT evidence of an acute fracture. Multilevel degenerative change of the lumbar spine with slight rotatory dextrocurvature. 2. Suspected prominent right-sided Tarlov cysts measuring 1.8 cm at T11-12 causing right-sided foraminal narrowing
== END 2025-01-15 23:59 | disposition home or self-care (01) ==
LOC: RAD 13:04
PROVIDERS: ATTEND Family Medicine
DX: M51.360 Other intervertebral disc degeneration, lumbar region with discogenic back pain only (principal); M47.816 Spondylosis without myelopathy or radiculopathy, lumbar region; M43.8X6 Other specified deforming dorsopathies, lumbar region
CPT/HCPCS: 72131